=== PATIENT | male | born 2000 | race Two or more races ===

== ENCOUNTER 2022-05-09 17:51 | Emergency (ER) | payer OTHER ==
[~2022-05-09] VITALS: Ht 180.3 cm; Wt 6.4 kg
[~2022-05-09 17:51] MED LIST: INSU100I24 SQ; INSU100V SQ; LORA10TA7 PO; METO5TAB95 PO; ONDA-104 PO
[2022-05-09] MEDS ORDERED: ONDANSETRON HCL 4 MG/2 ML VIAL IVP ONE (18:30)
[2022-05-09] MEDS ORDERED: SODIUM CHLORIDE 0.9% 1,000 ML IV ONE (18:30)
[2022-05-09 18:33] LABS: BASOPHILS % (AUTO) 0.3 % (0.0-2.0); EOSINOPHILS % (AUTO) 4.6 % (1.0-6.0); HEMATOCRIT 43.6 % (41-53); HEMOGLOBIN 14.4 g/dL (13.5-17.5); LYMPHOCYTES # (AUTO) 0.8 K/uL (1.0-4.8); LYMPHOCYTES % (AUTO) 12.3 % (22.0-44.0); MEAN CORPUSCULAR HEMOGLOBIN 29.6 pg (26.0-34.0); MEAN CORPUSCULAR HGB CONC 33.1 G/dL (31.0-37.0); MEAN CORPUSCULAR VOLUME 89 fL (80-100); MONOCYTES # (AUTO) 0.4 K/uL (0.1-1.0); MONOCYTES % (AUTO) 5.4 % (2.0-9.0); NEUTROPHILS # (AUTO) 5.2 K/uL (1.8-7.7); NEUTROPHILS % (AUTO) 77.4 % (40.0-70.0); PLATELET COUNT (AUTO) 239 K/uL (150-450); RED BLOOD CELL COUNT(AUTO) 4.88 MIL/uL (4.50-5.90); RED CELL DISTRIBUTION WIDTH 13.9 % (11.5-14.5)
[2022-05-09 18:42] LABS: COVID AG,FIA SOURCE NASAL SWAB
[2022-05-09 18:42] LABS: ANION GAP 11 mmol/L (8-16); CALCIUM, TOTAL 9.2 mg/dL (8.8-10.5); CARBON DIOXIDE 27 mmol/L (22-29); CHLORIDE 102 mmol/L (98-107); CREATININE 0.47 mg/dL (0.60-1.30); GLUCOSE,RANDOM 72 mg/dL (70-110); POTASSIUM 4.4 mmol/L (3.5-5.1); SODIUM SERUM 140 mmol/L (136-145); UREA NITROGEN, BLOOD 12 mg/dL (7-18)
[2022-05-09 18:43] LABS: GLOMERULAR FILTR. RATE CALC > 60 mL/min (>60)
[2022-05-09 18:48] LABS: ALANINE AMINOTRANSFERASE 23 U/L (12-78); ALBUMIN 3.6 g/dL (3.4-5.0); ALKALINE PHOSPHATASE 120 U/L (46-116); ASPARTATE AMINOTRANSFERASE 31 U/L (15-37); BILIRUBIN,TOTAL 0.3 mg/dL (0.1-1.0); LIPASE 25 U/L (73-393); TOTAL PROTEIN, SERUM 7.8 g/dL (6.4-8.2)
[2022-05-09 19:01] LABS: INFLUENZA TYPE A NEGATIVE FOR TYPE A (NEGATIVE); INFLUENZA TYPE B NEGATIVE FOR TYPE B (NEGATIVE)
[2022-05-09 20:15] LABS: APPEARANCE,URINE CLEAR (CLEAR); BILIRUBIN,URINE NEGATIVE (NEGATIVE); GLUCOSE, URINE (UA) >=1000 mg/dL (NEGATIVE); KETONES,URINE TRACE mg/dL (NEGATIVE); LEUKOCYTE ESTERASE ,URINE NEGATIVE (NEGATIVE); NITRATE,URINE NEGATIVE (NEGATIVE); OCCULT BLOOD,URINE NEGATIVE (NEGATIVE); PROTEIN,URINE NEGATIVE (NEGATIVE); SPECIFIC GRAVITIY, URINE 1.019 (1.003-1.030); UROBILINOGEN,URINE <=1.0 mg/dL (<=1.0)
[2022-05-09 20:26] LABS: BACTERIA,URINE None Seen /HPF (None Seen); RBC,URINE None Seen /HPF (0-2); SQUAMOUS EPITHELIAL CELL,UR Few /LPF (None Seen); WBC,URINE 0-2 /HPF (0-5)
[2022-05-09 20:34] LABS: AMPHET/METH SCREEN,URINE NEGATIVE (NEGATIVE); BARBITURATE SCREEN, URINE NEGATIVE (NEGATIVE); BENZODIAZEPINES SCREEN,URINE NEGATIVE (NEGATIVE); CANNABINOID SCREEN,URINE NEGATIVE (NEGATIVE); COCAINE SCREEN,URINE NEGATIVE (NEGATIVE); METHADONE SCREEN, URINE NEGATIVE (NEGATIVE); OPIATE SCREEN,URINE NEGATIVE (NEGATIVE)
[2022-05-09 20:38] LABS: PHENCYCLIDINE SCREEN,URINE NEGATIVE (NEGATIVE)
[2022-05-09 21:23] VITALS: BP 137/88
[2022-05-09] MEDS ORDERED: ONDA-104 PO ×2 (21:25→23:13)
[2022-05-09] MEDS ORDERED: DOCU-385 PO ×2 (21:25→23:13)
== END 2022-05-09 21:45 | disposition home or self-care (01) ==
LOC: EMS 17:51
DX: R11.2 Nausea with vomiting, unspecified (principal); Z20.822 Contact with and (suspected) exposure to COVID-19; E11.9 Type 2 diabetes mellitus without complications; K59.00 Constipation, unspecified
CPT/HCPCS: 99283; 96374; 96361; 87426; 80053; 82962; 83690; 85025; 87804; 36415; 80307; 81001; J2405; J7030

== ENCOUNTER 2022-07-11 15:02 | Inpatient (IN) | payer OTHER ==
[~2022-07-11] VITALS: Ht 185.4 cm; Wt 68.9 kg
[~2022-07-11 15:02] MED LIST changes: +DOCU-385 PO
[2022-07-11 17:54] LABS: EOSINOPHILS % (AUTO) 0 % (1.0-6.0); HEMATOCRIT 46.2 % (41-53); HEMOGLOBIN 15.1 g/dL (13.5-17.5); LYMPHOCYTES # (AUTO) 0.7 K/uL (1.0-4.8); LYMPHOCYTES % (AUTO) 6.8 % (22.0-44.0); MEAN CORPUSCULAR HEMOGLOBIN 29.5 pg (26.0-34.0); MEAN CORPUSCULAR HGB CONC 32.7 G/dL (31.0-37.0); MEAN CORPUSCULAR VOLUME 90 fL (80-100); MONOCYTES # (AUTO) 0.4 K/uL (0.1-1.0); MONOCYTES % (AUTO) 3.7 % (2.0-9.0); NEUTROPHILS # (AUTO) 9.9 K/uL (1.8-7.7); PLATELET COUNT (AUTO) 248 K/uL (150-450); RED BLOOD CELL COUNT(AUTO) 5.13 MIL/uL (4.50-5.90); RED CELL DISTRIBUTION WIDTH 14.5 % (11.5-14.5)
[2022-07-11 18:04] LABS: NEUTROPHILS % (AUTO) 89.5 % (40.0-70.0)
[2022-07-11 18:12] LABS: ANION GAP 18 mmol/L (8-16); CALCIUM, TOTAL 9.1 mg/dL (8.8-10.5); CARBON DIOXIDE 25 mmol/L (22-29); CHLORIDE 98 mmol/L (98-107); GLUCOSE,RANDOM 272 mg/dL (70-110); POTASSIUM 3.8 mmol/L (3.5-5.1); SODIUM SERUM 141 mmol/L (136-145); UREA NITROGEN, BLOOD 17 mg/dL (7-18)
[2022-07-11 18:14] LABS: GLOMERULAR FILTR. RATE CALC > 60 mL/min (>60)
[2022-07-11 18:29] LABS: ALANINE AMINOTRANSFERASE 22 U/L (12-78); ALBUMIN 4.2 g/dL (3.4-5.0); ALKALINE PHOSPHATASE 116 U/L (46-116); ASPARTATE AMINOTRANSFERASE 16 U/L (15-37); BILIRUBIN,TOTAL 0.5 mg/dL (0.1-1.0); LIPASE 20 U/L (73-393); TOTAL PROTEIN, SERUM 8.3 g/dL (6.4-8.2)
[2022-07-11] MEDS ORDERED: ONDANSETRON HCL 4 MG/2 ML VIAL IVP ONE (19:15)
[2022-07-11] MEDS ORDERED: SODIUM CHLORIDE 0.9% 1,000 ML IV ONE (19:15)
[2022-07-11] MEDS ORDERED: INSULIN REGULAR, HUMAN 100 UNITS/ML IVP ONE (20:00)
[2022-07-11 20:22] LABS: BASE EXCESS,VENOUS BLOOD GAS -0.6 (-3.3-1.2); HCO3,VENOUS BLOOD GAS 24.5 (21.0-28.0); PCO2,VENOUS BLOOD GAS 33 (40-45); PH,VENOUS BLOOD GAS 7.461 (7.360-7.410); SOURCE, BLOOD GAS VENOUS; TEMPERATURE, FAHRENHEIT, BG 98.6 FAHREN (96.0-98.6); TOTAL HEMOGLOBIN,VENOUS BGAS 15.4 (12.0-18.0)
[2022-07-11 20:25] LABS: SITE, BLOOD GAS OTHER
[2022-07-11 20:37] LABS: COVID AG,FIA SOURCE NASAL SWAB
[2022-07-11 20:56] LABS: APPEARANCE,URINE CLEAR (CLEAR); BILIRUBIN,URINE NEGATIVE (NEGATIVE); GLUCOSE, URINE (UA) >=1000 mg/dL (NEGATIVE); KETONES,URINE 80-100 mg/dL (NEGATIVE); LEUKOCYTE ESTERASE ,URINE NEGATIVE (NEGATIVE); NITRATE,URINE NEGATIVE (NEGATIVE); OCCULT BLOOD,URINE NEGATIVE (NEGATIVE); PROTEIN,URINE 30-70 mg/dL (NEGATIVE); SPECIFIC GRAVITIY, URINE 1.022 (1.003-1.030); UROBILINOGEN,URINE <=1.0 mg/dL (<=1.0)
[2022-07-11] MEDS ORDERED: ACETAMINOPHEN 325 MG TABLET PO PRN (21:00)
[2022-07-11] MEDS ORDERED: INSULIN GLARGINE,HUM.REC.ANLOG 100 UNITS/ML SQ SCH (21:00)
[2022-07-11 21:22] LABS: BACTERIA,URINE Rare /HPF (None Seen); RBC,URINE None Seen /HPF (0-2); SQUAMOUS EPITHELIAL CELL,UR Few /LPF (None Seen); WBC,URINE 0-2 /HPF (0-5)
[2022-07-11 21:30] LABS: ACETONE, URINE 1:16 (NEGATIVE)
[2022-07-11] MEDS: RINGERS SOLUTION,LACTATED 1,650 ML IV ONE ×2 (22:06→22:07)
[2022-07-11 23:36] LABS: GLUCOMETER DEV NAME(LOC) ERT.5; GLUCOSE,POINT OF CARE 325 MG/DL (70-110)
[2022-07-11 23:56] LABS: ANION GAP 15 mmol/L (8-16); CALCIUM, TOTAL 8.5 mg/dL (8.8-10.5); CARBON DIOXIDE 24 mmol/L (22-29); CHLORIDE 99 mmol/L (98-107); CREATININE 0.87 mg/dL (0.60-1.30); GLUCOSE,RANDOM 285 mg/dL (70-110); POTASSIUM 3.6 mmol/L (3.5-5.1); SODIUM SERUM 138 mmol/L (136-145); UREA NITROGEN, BLOOD 19 mg/dL (7-18)
[2022-07-11 23:59] LABS: GLOMERULAR FILTR. RATE CALC > 60 mL/min (>60)
[2022-07-12] MEDS ORDERED: RINGERS SOLUTION,LACTATED 1,000 ML IV SCH (01:00)
[2022-07-12] MEDS ORDERED: RINGERS SOLUTION,LACTATED 1,000 ML IV ONE (01:15)
[2022-07-12] MEDS: ONDANSETRON HCL 4 MG/2 ML VIAL IVP PRN ×2 (01:17→11:02)
[2022-07-12 05:42] LABS: ANION GAP 16 mmol/L (8-16); CALCIUM, TOTAL 8.2 mg/dL (8.8-10.5); CARBON DIOXIDE 21 mmol/L (22-29); CHLORIDE 100 mmol/L (98-107); CREATININE 0.89 mg/dL (0.60-1.30); GLUCOSE,RANDOM 288 mg/dL (70-110); SODIUM SERUM 137 mmol/L (136-145); UREA NITROGEN, BLOOD 17 mg/dL (7-18)
[2022-07-12 05:43] LABS: BASOPHILS % (AUTO) 0.1 % (0.0-2.0); EOSINOPHILS % (AUTO) 0 % (1.0-6.0); GLOMERULAR FILTR. RATE CALC > 60 mL/min (>60); HEMATOCRIT 42.9 % (41-53); LYMPHOCYTES # (AUTO) 0.9 K/uL (1.0-4.8); LYMPHOCYTES % (AUTO) 4.8 % (22.0-44.0); MEAN CORPUSCULAR HEMOGLOBIN 29.7 pg (26.0-34.0); MEAN CORPUSCULAR HGB CONC 32.7 G/dL (31.0-37.0); MEAN CORPUSCULAR VOLUME 91 fL (80-100); MONOCYTES # (AUTO) 0.7 K/uL (0.1-1.0); NEUTROPHILS # (AUTO) 16.4 K/uL (1.8-7.7); PLATELET COUNT (AUTO) 218 K/uL (150-450); RED BLOOD CELL COUNT(AUTO) 4.72 MIL/uL (4.50-5.90); RED CELL DISTRIBUTION WIDTH 14.6 % (11.5-14.5)
[2022-07-12 05:44] LABS: NEUTROPHILS % (AUTO) 91.1 % (40.0-70.0)
[2022-07-12] MEDS ORDERED: SODIUM CHLORIDE 0.9% 1,000 ML IV SCH ×2 (06:30→16:00)
[2022-07-12] MEDS ORDERED: POTASSIUM CHL 20 MEQ/0.45% NS 1,000 ML IV PRN (06:30)
[2022-07-12] MEDS ORDERED: INSULIN REGULAR, HUMAN 100 UNITS/ML IVP PRN (06:30)
[2022-07-12] MEDS ORDERED: SODIUM CHLORIDE 0.45% 1,000 ML IV PRN (06:30)
[2022-07-12] MEDS ORDERED: POTASSIUM CHLORIDE 40 MEQ in SODIUM CHLORIDE 0.45% 1,000 ML IV PRN (06:30)
[2022-07-12] MEDS ORDERED: DEXTROSE 5%-0.45% SODIUM CHL 1,000 ML IV PRN (06:30)
[2022-07-12] MEDS ORDERED: DEXTROSE 50%-WATER 25 GM/50 ML SYRINGE IVP PRN ×2 (06:30→13:15)
[2022-07-12] MEDS ORDERED: SODIUM CHLORIDE 0.9% 100 ML ONE (07:32)
[2022-07-12] MEDS ORDERED: IOHEXOL 350 MG/ML 100 ML VIAL ONE (07:32)
[2022-07-12] MEDS: INSULIN REGULAR, HUMAN 100 UNITS in SODIUM CHLORIDE 0.9% 99 ML IV PRN ×6 (07:40→09:41)
[2022-07-12] MEDS: HEPARIN SODIUM,PORCINE 5,000 UNITS/ML VIAL SQ SCH ×4 (08:37→16:00)
[2022-07-12 09:16] LABS: GLUCOMETER DEV NAME(LOC) ERT.5; GLUCOSE,POINT OF CARE 248 MG/DL (70-110)
[2022-07-12 09:16] LABS: GLUCOMETER DEV NAME(LOC) ERT.5; GLUCOSE,POINT OF CARE 266 MG/DL (70-110)
[2022-07-12 09:56] LABS: GLUCOMETER DEV NAME(LOC) ERT.5; GLUCOSE,POINT OF CARE 215 MG/DL (70-110)
[2022-07-12 12:02] LABS: ANION GAP 9 mmol/L (8-16); CALCIUM, TOTAL 8.1 mg/dL (8.8-10.5); CARBON DIOXIDE 25 mmol/L (22-29); CHLORIDE 103 mmol/L (98-107); CREATININE 0.85 mg/dL (0.60-1.30); GLUCOSE,RANDOM 193 mg/dL (70-110); POTASSIUM 3.6 mmol/L (3.5-5.1); SODIUM SERUM 137 mmol/L (136-145); UREA NITROGEN, BLOOD 15 mg/dL (7-18)
[2022-07-12 12:03] LABS: GLOMERULAR FILTR. RATE CALC > 60 mL/min (>60)
[2022-07-12 12:11] LABS: GLUCOMETER DEV NAME(LOC) ERT.5; GLUCOSE,POINT OF CARE 185 MG/DL (70-110)
[2022-07-12 12:11] LABS: GLUCOMETER DEV NAME(LOC) ERT.5; GLUCOSE,POINT OF CARE 187 MG/DL (70-110)
[2022-07-12 12:56] LABS: GLUCOMETER DEV NAME(LOC) ERT.5; GLUCOSE,POINT OF CARE 152 MG/DL (70-110)
[2022-07-12] MEDS ORDERED: INSULIN REGULAR, HUMAN 100 UNITS/ML SQ ONE (13:15)
[2022-07-12] MEDS: SODIUM CHLORIDE 0.45% 1,000 ML IV SCH ×2 (13:17→22:07)
[2022-07-12 13:41] LABS: GLUCOMETER DEV NAME(LOC) ERT.5; GLUCOSE,POINT OF CARE 153 MG/DL (70-110)
[2022-07-12] MEDS: METOCLOPRAMIDE HCL 5 MG/ML 2 ML VIAL IVP PRN (14:23)
[2022-07-12 14:55] LABS: AMPHET/METH SCREEN,URINE NEGATIVE (NEGATIVE); BARBITURATE SCREEN, URINE NEGATIVE (NEGATIVE); BENZODIAZEPINES SCREEN,URINE NEGATIVE (NEGATIVE); CANNABINOID SCREEN,URINE NEGATIVE (NEGATIVE); COCAINE SCREEN,URINE NEGATIVE (NEGATIVE); METHADONE SCREEN, URINE NEGATIVE (NEGATIVE); OPIATE SCREEN,URINE NEGATIVE (NEGATIVE)
[2022-07-12 14:56] LABS: PHENCYCLIDINE SCREEN,URINE NEGATIVE (NEGATIVE)
[2022-07-12 15:47] LABS: BASOPHILS % (AUTO) 0.1 % (0.0-2.0); EOSINOPHILS % (AUTO) 0 % (1.0-6.0); HEMATOCRIT 43.6 % (41-53); HEMOGLOBIN 14.3 g/dL (13.5-17.5); LYMPHOCYTES # (AUTO) 1.2 K/uL (1.0-4.8); LYMPHOCYTES % (AUTO) 6.9 % (22.0-44.0); MEAN CORPUSCULAR HEMOGLOBIN 29.7 pg (26.0-34.0); MEAN CORPUSCULAR HGB CONC 32.8 G/dL (31.0-37.0); MEAN CORPUSCULAR VOLUME 91 fL (80-100); MONOCYTES % (AUTO) 6.1 % (2.0-9.0); NEUTROPHILS # (AUTO) 14.8 K/uL (1.8-7.7); PLATELET COUNT (AUTO) 247 K/uL (150-450); RED BLOOD CELL COUNT(AUTO) 4.81 MIL/uL (4.50-5.90); RED CELL DISTRIBUTION WIDTH 14.6 % (11.5-14.5)
[2022-07-12 15:48] LABS: NEUTROPHILS % (AUTO) 86.9 % (40.0-70.0)
[2022-07-12 15:56] LABS: ANION GAP 8 mmol/L (8-16); CARBON DIOXIDE 26 mmol/L (22-29); CHLORIDE 102 mmol/L (98-107); CREATININE 0.81 mg/dL (0.60-1.30); GLOMERULAR FILTR. RATE CALC > 60 mL/min (>60); GLUCOSE,RANDOM 164 mg/dL (70-110); POTASSIUM 3.7 mmol/L (3.5-5.1); SODIUM SERUM 136 mmol/L (136-145); UREA NITROGEN, BLOOD 13 mg/dL (7-18)
[2022-07-12] MEDS ORDERED: ALBUTEROL SULFATE 2.5 MG/0.5 ML NEB SOLUTION NEB PRN (16:00)
[2022-07-12] MEDS ORDERED: IPRATROPIUM BROMIDE 0.5 MG/2.5 ML NEB SOLUTION NEB PRN (16:00)
[2022-07-12] MEDS ORDERED: ONDANSETRON HCL 4 MG/2 ML VIAL IVP PRN (16:00)
[2022-07-12] MEDS ORDERED: MAGNESIUM HYDROXIDE SUSPENSION 30 ML UDCUP PO PRN (16:00)
[2022-07-12] MEDS ORDERED: BISACODYL 10 MG RECTAL RECTAL SUPPOSITORY PR PRN (16:00)
[2022-07-12 16:04] LABS: PLATELET MORPHOLOGY COMMENT LARGE PLTS PRESENT
[2022-07-12] MEDS: PIPERACILLIN/TAZO 3.375 GM/D5W 50 ML IV SCH ×2 (16:22→22:07)
[2022-07-12] MEDS: MORPHINE SULFATE 2 MG/ML SYRINGE IVP PRN ×2 (16:23→22:21)
[2022-07-12 17:32] LABS: GLUCOMETER DEV NAME(LOC) ERT.5; GLUCOSE,POINT OF CARE 153 MG/DL (70-110)
[2022-07-12] MEDS: INSULIN LISPRO 100 UNITS/ML SQ PRN (17:52)
[2022-07-12 22:00] VITALS: BP 126/73
[2022-07-12 22:21] VITALS: BP 126/73
[2022-07-12 22:51] LABS: GLUCOMETER DEV NAME(LOC) 5N.1C; GLUCOSE,POINT OF CARE 122 MG/DL (70-110)
[2022-07-13] VITALS (7 sets, daily range): BP systolic 112–162; BP diastolic 68–90
[2022-07-13] MEDS: HEPARIN SODIUM,PORCINE 5,000 UNITS/ML VIAL SQ SCH ×4 (00:47→23:24)
[2022-07-13] MEDS: PIPERACILLIN/TAZO 3.375 GM/D5W 50 ML IV SCH ×4 (05:30→23:22)
[2022-07-13] MEDS: INSULIN LISPRO 100 UNITS/ML SQ PRN ×4 (06:34→21:38)
[2022-07-13 07:52] LABS: ABG BASE EXCESS -0.3 mmol/L (-2.0-3.0); ABG CARBOXYHEMOGLOBIN 0.8 % (0.0-3.0); ABG HCO3 24.9 mmol/L (22.0-26.0); ABG METHEMOGLOBIN 0.3 % (0.0-1.5); ABG OXYGEN CONTENT 20.4 mL/dL (15.0-23.0); ABG OXYGEN SATURATION 97.7 % (95.0-98.0); ABG OXYHEMOGLOBIN 96.6 % (94.0-100.0); ABG PCO2 33 mmHg (35-45); ABG PH 7.468 (7.350-7.450); SOURCE, BLOOD GAS ARTERIAL; TEMPERATURE, FAHRENHEIT, BG 98.5 FAHREN (96.0-98.6)
[2022-07-13 07:53] LABS: SITE, BLOOD GAS RT BRACHIAL
[2022-07-13] MEDS: METOCLOPRAMIDE HCL 5 MG/ML 2 ML VIAL IVP PRN ×2 (07:56→15:49)
[2022-07-13] MEDS ORDERED: PANTOPRAZOLE SODIUM 40 MG DR TABLET PO SCH (09:00)
[2022-07-13] MEDS: ONDANSETRON HCL 4 MG/2 ML VIAL IVP PRN ×2 (10:00→21:40)
[2022-07-13] MEDS: SODIUM CHLORIDE 0.45% 1,000 ML IV SCH ×2 (10:04→23:23)
[2022-07-13] MEDS: MORPHINE SULFATE 2 MG/ML SYRINGE IVP PRN ×2 (11:11→21:41)
[2022-07-13 12:52] LABS: GLUCOMETER DEV NAME(LOC) 5S.2B; GLUCOSE,POINT OF CARE 281 MG/DL (70-110)
[2022-07-13 12:52] LABS: GLUCOMETER DEV NAME(LOC) 5S.2B; GLUCOSE,POINT OF CARE 254 MG/DL (70-110)
[2022-07-13] MEDS: VANCOMYCIN HCL 1 GM/D5% WATER 200 ML IV SCH (15:48)
[2022-07-14] VITALS (9 sets, daily range): BP systolic 96–146; BP diastolic 54–81
[2022-07-14] MEDS: VANCOMYCIN HCL 1 GM/D5% WATER 200 ML IV SCH ×4 (00:13→23:48)
[2022-07-14 00:41] LABS: GLUCOMETER DEV NAME(LOC) 5N.1C; GLUCOSE,POINT OF CARE 214 MG/DL (70-110)
[2022-07-14 00:41] LABS: GLUCOMETER DEV NAME(LOC) 5N.1C; GLUCOSE,POINT OF CARE 204 MG/DL (70-110)
[2022-07-14] MEDS ORDERED: SODIUM CHLORIDE 0.9% 100 ML ONE (03:04)
[2022-07-14] MEDS: PIPERACILLIN/TAZO 3.375 GM/D5W 50 ML IV SCH ×4 (04:41→22:56)
[2022-07-14] MEDS: ONDANSETRON HCL 4 MG/2 ML VIAL IVP PRN (05:07)
[2022-07-14] MEDS: MORPHINE SULFATE 2 MG/ML SYRINGE IVP PRN (05:07)
[2022-07-14] MEDS: INSULIN LISPRO 100 UNITS/ML SQ PRN ×4 (06:38→20:04)
[2022-07-14 06:50] LABS: ANION GAP 15 mmol/L (8-16); CALCIUM, TOTAL 8.1 mg/dL (8.8-10.5); CARBON DIOXIDE 22 mmol/L (22-29); CHLORIDE 94 mmol/L (98-107); CREATININE 0.92 mg/dL (0.60-1.30); GLUCOSE,RANDOM 280 mg/dL (70-110); POTASSIUM 3.7 mmol/L (3.5-5.1); SODIUM SERUM 131 mmol/L (136-145); UREA NITROGEN, BLOOD 13 mg/dL (7-18)
[2022-07-14 06:54] LABS: GLOMERULAR FILTR. RATE CALC > 60 mL/min (>60)
[2022-07-14] MEDS: PANTOPRAZOLE SODIUM 40 MG/VIAL IVP SCH (09:05)
[2022-07-14] MEDS: HEPARIN SODIUM,PORCINE 5,000 UNITS/ML VIAL SQ SCH ×3 (09:11→23:02)
[2022-07-14 16:16] LABS: BASOPHILS % (AUTO) 0.3 % (0.0-2.0); EOSINOPHILS % (AUTO) 0.4 % (1.0-6.0); HEMOGLOBIN 14.5 g/dL (13.5-17.5); LYMPHOCYTES # (AUTO) 1.8 K/uL (1.0-4.8); LYMPHOCYTES % (AUTO) 23.9 % (22.0-44.0); MEAN CORPUSCULAR HEMOGLOBIN 30.3 pg (26.0-34.0); MEAN CORPUSCULAR HGB CONC 33.6 G/dL (31.0-37.0); MEAN CORPUSCULAR VOLUME 90 fL (80-100); MONOCYTES # (AUTO) 0.7 K/uL (0.1-1.0); MONOCYTES % (AUTO) 9.1 % (2.0-9.0); NEUTROPHILS # (AUTO) 4.9 K/uL (1.8-7.7); NEUTROPHILS % (AUTO) 66.3 % (40.0-70.0); PLATELET COUNT (AUTO) 219 K/uL (150-450); RED BLOOD CELL COUNT(AUTO) 4.77 MIL/uL (4.50-5.90)
[2022-07-14 16:25] LABS: ANION GAP 12 mmol/L (8-16); CALCIUM, TOTAL 7.8 mg/dL (8.8-10.5); CARBON DIOXIDE 24 mmol/L (22-29); CHLORIDE 98 mmol/L (98-107); CREATININE 0.98 mg/dL (0.60-1.30); GLUCOSE,RANDOM 232 mg/dL (70-110); POTASSIUM 3.8 mmol/L (3.5-5.1); SODIUM SERUM 134 mmol/L (136-145); UREA NITROGEN, BLOOD 14 mg/dL (7-18)
[2022-07-14 16:31] LABS: ALANINE AMINOTRANSFERASE 16 U/L (12-78); ALBUMIN 2.9 g/dL (3.4-5.0); ALKALINE PHOSPHATASE 98 U/L (46-116); ASPARTATE AMINOTRANSFERASE 10 U/L (15-37); BILIRUBIN,TOTAL 0.8 mg/dL (0.1-1.0); GLOMERULAR FILTR. RATE CALC > 60 mL/min (>60); TOTAL PROTEIN, SERUM 6.1 g/dL (6.4-8.2)
[2022-07-14 16:46] LABS: GLUCOMETER DEV NAME(LOC) 5N.1C; GLUCOSE,POINT OF CARE 227 MG/DL (70-110)
[2022-07-14] MEDS: SODIUM CHLORIDE 0.45% 1,000 ML IV SCH (17:56)
[2022-07-14] MEDS: HYDROCORTISONE 1% 30 GM OINTMENT TP SCH (19:55)
[2022-07-15] MEDS: SODIUM CHLORIDE 0.45% 1,000 ML IV SCH ×3 (01:15→18:21)
[2022-07-15 04:00] VITALS: BP 101/60
[2022-07-15] MEDS: PIPERACILLIN/TAZO 3.375 GM/D5W 50 ML IV SCH ×5 (04:39→22:57)
[2022-07-15] MEDS: INSULIN LISPRO 100 UNITS/ML SQ PRN ×5 (04:49→22:34)
[2022-07-15] MEDS: MORPHINE SULFATE 2 MG/ML SYRINGE IVP PRN ×2 (04:54→08:05)
[2022-07-15 05:53] LABS: ANION GAP 12 mmol/L (8-16); CALCIUM, TOTAL 7.8 mg/dL (8.8-10.5); CARBON DIOXIDE 22 mmol/L (22-29); CHLORIDE 97 mmol/L (98-107); CREATININE 1.02 mg/dL (0.60-1.30); GLUCOSE,RANDOM 392 mg/dL (70-110); POTASSIUM 3.8 mmol/L (3.5-5.1); SODIUM SERUM 131 mmol/L (136-145); UREA NITROGEN, BLOOD 17 mg/dL (7-18); VANCOMYCIN,RANDOM 20.7 mcg/mL (25.0-50.0)
[2022-07-15 05:57] LABS: GLOMERULAR FILTR. RATE CALC > 60 mL/min (>60)
[2022-07-15 07:21] VITALS: BP 115/58
[2022-07-15] MEDS: VANCOMYCIN 1GM/WATER(PEG/NADA) 200 ML IV SCH ×2 (07:53→15:19)
[2022-07-15] MEDS: HYDROCORTISONE 1% 30 GM OINTMENT TP SCH ×2 (07:54→20:04)
[2022-07-15] MEDS: HEPARIN SODIUM,PORCINE 5,000 UNITS/ML VIAL SQ SCH ×2 (07:54→15:19)
[2022-07-15] MEDS: PANTOPRAZOLE SODIUM 40 MG/VIAL IVP SCH (07:54)
[2022-07-15 08:02] LABS: GLUCOMETER DEV NAME(LOC) 5N.1C; GLUCOSE,POINT OF CARE 272 MG/DL (70-110)
[2022-07-15 08:26] LABS: GLUCOMETER DEV NAME(LOC) 5S.2B; GLUCOSE,POINT OF CARE 249 MG/DL (70-110)
[2022-07-15 08:26] LABS: GLUCOMETER DEV NAME(LOC) 5S.2B; GLUCOSE,POINT OF CARE 268 MG/DL (70-110)
[2022-07-15 08:27] LABS: GLUCOMETER DEV NAME(LOC) 5S.2B; GLUCOSE,POINT OF CARE 358 MG/DL (70-110)
[2022-07-15 08:27] LABS: GLUCOMETER DEV NAME(LOC) 5S.2B; GLUCOSE,POINT OF CARE 229 MG/DL (70-110)
[2022-07-15 11:56] VITALS: BP 112/64
[2022-07-15 12:26] LABS: GLUCOMETER DEV NAME(LOC) 5S.2B; GLUCOSE,POINT OF CARE 230 MG/DL (70-110)
[2022-07-15 15:28] VITALS: BP 131/77
[2022-07-15] MEDS: LIDOCAINE 2% VISCOUS 15 ML SOLUTION UDCUP PO PRN ×2 (17:01→20:32)
[2022-07-15 17:41] LABS: GLUCOMETER DEV NAME(LOC) 5N.1C; GLUCOSE,POINT OF CARE 284 MG/DL (70-110)
[2022-07-15 20:00] VITALS: BP 119/90
[2022-07-15] MEDS: ZOLPIDEM TARTRATE 5 MG TABLET PO PRN (20:31)
[2022-07-15 22:41] LABS: GLUCOMETER DEV NAME(LOC) 5N.1C; GLUCOSE,POINT OF CARE 217 MG/DL (70-110)
[2022-07-16] VITALS (7 sets, daily range): BP systolic 101–149; BP diastolic 55–90
[2022-07-16] LABS: GLUCOMETER DEV NAME(LOC) 5S.2B; GLUCOSE,POINT OF CARE 269 MG/DL (70-110)
[2022-07-16] MEDS: VANCOMYCIN 1GM/WATER(PEG/NADA) 200 ML IV SCH ×3 (00:21→16:52)
[2022-07-16] MEDS: INSULIN LISPRO 100 UNITS/ML SQ PRN ×6 (00:25→21:40)
[2022-07-16] MEDS: HEPARIN SODIUM,PORCINE 5,000 UNITS/ML VIAL SQ SCH ×3 (00:27→16:52)
[2022-07-16] MEDS: HYDROCODONE/ACETAMINOPHEN 5-325 MG TABLET PO PRN ×2 (00:28→09:22)
[2022-07-16] MEDS: ACETAMINOPHEN 325 MG TABLET PO PRN ×2 (03:54→21:41)
[2022-07-16] MEDS: PIPERACILLIN/TAZO 3.375 GM/D5W 50 ML IV SCH ×2 (05:25→11:33)
[2022-07-16 05:31] LABS: GLUCOMETER DEV NAME(LOC) 5S.2B; GLUCOSE,POINT OF CARE 145 MG/DL (70-110)
[2022-07-16 07:07] LABS: ANION GAP 9 mmol/L (8-16); CALCIUM, TOTAL 8.1 mg/dL (8.8-10.5); CARBON DIOXIDE 32 mmol/L (22-29); CHLORIDE 97 mmol/L (98-107); CREATININE 0.79 mg/dL (0.60-1.30); GLUCOSE,RANDOM 148 mg/dL (70-110); POTASSIUM 3.1 mmol/L (3.5-5.1); SODIUM SERUM 138 mmol/L (136-145); UREA NITROGEN, BLOOD 9 mg/dL (7-18)
[2022-07-16 07:08] LABS: GLOMERULAR FILTR. RATE CALC > 60 mL/min (>60)
[2022-07-16] MEDS: HYDROCORTISONE 1% 30 GM OINTMENT TP SCH ×2 (09:00→21:41)
[2022-07-16] MEDS ORDERED: SODIUM CHLORIDE 0.9% 0 ML ONE (09:03)
[2022-07-16] MEDS: PANTOPRAZOLE SODIUM 40 MG/VIAL IVP SCH (09:07)
[2022-07-16] MEDS: SODIUM CHLORIDE 0.45% 1,000 ML IV SCH ×2 (09:07→23:19)
[2022-07-16] MEDS ORDERED: POTASSIUM CHLORIDE 20 MEQ ER TABLET PO ONE (17:15)
[2022-07-16 17:21] LABS: BASOPHILS % (AUTO) 0.6 % (0.0-2.0); EOSINOPHILS % (AUTO) 3.9 % (1.0-6.0); HEMATOCRIT 44.7 % (41-53); HEMOGLOBIN 14.9 g/dL (13.5-17.5); LYMPHOCYTES # (AUTO) 1.2 K/uL (1.0-4.8); LYMPHOCYTES % (AUTO) 27.7 % (22.0-44.0); MEAN CORPUSCULAR HGB CONC 33.2 G/dL (31.0-37.0); MEAN CORPUSCULAR VOLUME 90 fL (80-100); MONOCYTES # (AUTO) 0.3 K/uL (0.1-1.0); MONOCYTES % (AUTO) 7.1 % (2.0-9.0); NEUTROPHILS # (AUTO) 2.6 K/uL (1.8-7.7); NEUTROPHILS % (AUTO) 60.7 % (40.0-70.0); PLATELET COUNT (AUTO) 220 K/uL (150-450); RED BLOOD CELL COUNT(AUTO) 4.96 MIL/uL (4.50-5.90); RED CELL DISTRIBUTION WIDTH 13.8 % (11.5-14.5)
[2022-07-16] MEDS: ZOLPIDEM TARTRATE 5 MG TABLET PO PRN (21:46)
[2022-07-17] MEDS: HEPARIN SODIUM,PORCINE 5,000 UNITS/ML VIAL SQ SCH ×4 (00:15→23:52)
[2022-07-17] MEDS: VANCOMYCIN 1GM/WATER(PEG/NADA) 200 ML IV SCH ×2 (00:15→08:41)
[2022-07-17] MEDS: INSULIN LISPRO 100 UNITS/ML SQ PRN ×6 (00:21→20:39)
[2022-07-17 03:27] VITALS: BP 107/60
[2022-07-17] MEDS: HYDROCODONE/ACETAMINOPHEN 5-325 MG TABLET PO PRN (04:22)
[2022-07-17 04:26] LABS: GLUCOMETER DEV NAME(LOC) 5N.1C; GLUCOSE,POINT OF CARE 275 MG/DL (70-110)
[2022-07-17 04:26] LABS: GLUCOMETER DEV NAME(LOC) 5N.1C; GLUCOSE,POINT OF CARE 307 MG/DL (70-110)
[2022-07-17 06:57] LABS: ANION GAP 6 mmol/L (8-16); CALCIUM, TOTAL 8.7 mg/dL (8.8-10.5); CARBON DIOXIDE 32 mmol/L (22-29); CHLORIDE 101 mmol/L (98-107); CREATININE 0.99 mg/dL (0.60-1.30); GLUCOSE,RANDOM 180 mg/dL (70-110); POTASSIUM 3.5 mmol/L (3.5-5.1); SODIUM SERUM 139 mmol/L (136-145); UREA NITROGEN, BLOOD 9 mg/dL (7-18)
[2022-07-17 07:00] LABS: GLOMERULAR FILTR. RATE CALC > 60 mL/min (>60)
[2022-07-17 07:31] VITALS: BP 134/79
[2022-07-17] MEDS: PANTOPRAZOLE SODIUM 40 MG/VIAL IVP SCH (08:40)
[2022-07-17] MEDS: HYDROCORTISONE 1% 30 GM OINTMENT TP SCH ×2 (09:00→20:40)
[2022-07-17] MEDS: SODIUM CHLORIDE 0.45% 1,000 ML IV SCH ×2 (12:26→22:04)
[2022-07-17 12:40] VITALS: BP 116/71
[2022-07-17 13:06] LABS: GLUCOMETER DEV NAME(LOC) 5N.1C; GLUCOSE,POINT OF CARE 282 MG/DL (70-110)
[2022-07-17 15:34] VITALS: BP 128/80
[2022-07-17] MEDS: NAFCILLIN SODIUM 2 GM in DEXTROSE 5%-WATER 100 ML IV SCH ×3 (16:50→23:51)
[2022-07-17 19:18] VITALS: BP 122/82
[2022-07-17] MEDS: INSULIN GLARGINE,HUM.REC.ANLOG 100 UNITS/ML SQ SCH (20:39)
[2022-07-17] MEDS: ACETAMINOPHEN 325 MG TABLET PO PRN (20:40)
[2022-07-17] MEDS: ZOLPIDEM TARTRATE 5 MG TABLET PO PRN (20:40)
[2022-07-18] MEDS: INSULIN LISPRO 100 UNITS/ML SQ PRN ×5 (00:06→20:40)
[2022-07-18 00:15] VITALS: BP 126/69
[2022-07-18] MEDS: NAFCILLIN SODIUM 2 GM in DEXTROSE 5%-WATER 100 ML IV SCH ×2 (04:09→11:14)
[2022-07-18 04:30] VITALS: BP 133/61
[2022-07-18] MEDS ORDERED: LIDOCAINE 2% VISCOUS 15 ML SOLUTION UDCUP ONE (06:53)
[2022-07-18 07:05] LABS: BASOPHILS % (AUTO) 0.8 % (0.0-2.0); EOSINOPHILS % (AUTO) 5.8 % (1.0-6.0); HEMATOCRIT 38.4 % (41-53); HEMOGLOBIN 13.1 g/dL (13.5-17.5); LYMPHOCYTES # (AUTO) 1.6 K/uL (1.0-4.8); MEAN CORPUSCULAR HEMOGLOBIN 30.6 pg (26.0-34.0); MEAN CORPUSCULAR HGB CONC 34.1 G/dL (31.0-37.0); MEAN CORPUSCULAR VOLUME 90 fL (80-100); MONOCYTES # (AUTO) 0.5 K/uL (0.1-1.0); MONOCYTES % (AUTO) 10.1 % (2.0-9.0); NEUTROPHILS # (AUTO) 2.3 K/uL (1.8-7.7); NEUTROPHILS % (AUTO) 49.3 % (40.0-70.0); PLATELET COUNT (AUTO) 214 K/uL (150-450); RED BLOOD CELL COUNT(AUTO) 4.27 MIL/uL (4.50-5.90); RED CELL DISTRIBUTION WIDTH 13.9 % (11.5-14.5)
[2022-07-18 07:14] VITALS: BP 120/70
[2022-07-18] MEDS ORDERED: FentaNYL CITRATE PF 100 MCG/2 ML VIAL ONE (07:27)
[2022-07-18] MEDS ORDERED: MIDAZOLAM HCL 2 MG/2 ML VIAL ONE (07:27)
[2022-07-18 07:34] LABS: ALANINE AMINOTRANSFERASE 21 U/L (12-78); ALKALINE PHOSPHATASE 81 U/L (46-116); ANION GAP 3 mmol/L (8-16); ASPARTATE AMINOTRANSFERASE 15 U/L (15-37); BILIRUBIN,TOTAL 0.3 mg/dL (0.1-1.0); C-REACTIVE PROTEIN QUANT 0.22 mg/dL (0.00-0.30); CALCIUM, TOTAL 8.4 mg/dL (8.8-10.5); CARBON DIOXIDE 33 mmol/L (22-29); CHLORIDE 101 mmol/L (98-107); CREATININE 0.83 mg/dL (0.60-1.30); GLOMERULAR FILTR. RATE CALC > 60 mL/min (>60); GLUCOSE,RANDOM 184 mg/dL (70-110); POTASSIUM 3.3 mmol/L (3.5-5.1); SODIUM SERUM 137 mmol/L (136-145); TOTAL PROTEIN, SERUM 6.2 g/dL (6.4-8.2); UREA NITROGEN, BLOOD 9 mg/dL (7-18)
[2022-07-18] MEDS ORDERED: LIDOCAINE 2% VISCOUS 15 ML SOLUTION UDCUP PO ONE (07:45)
[2022-07-18] MEDS ORDERED: MIDAZOLAM HCL 2 MG/2 ML VIAL IVP ONE ×2 (07:45)
[2022-07-18] MEDS ORDERED: FentaNYL CITRATE PF 100 MCG/2 ML VIAL IVP ONE ×2 (07:45)
[2022-07-18] MEDS: HEPARIN SODIUM,PORCINE 5,000 UNITS/ML VIAL SQ SCH ×2 (08:00→16:00)
[2022-07-18] MEDS: HYDROCORTISONE 1% 30 GM OINTMENT TP SCH ×2 (09:00→21:00)
[2022-07-18] MEDS: SODIUM CHLORIDE 0.45% 1,000 ML IV SCH ×2 (11:14→17:27)
[2022-07-18] MEDS: PANTOPRAZOLE SODIUM 40 MG/VIAL IVP SCH (11:14)
[2022-07-18] MEDS: INSULIN GLARGINE,HUM.REC.ANLOG 100 UNITS/ML SQ SCH ×2 (11:25→20:39)
[2022-07-18 11:33] VITALS: BP 115/62
[2022-07-18 14:59] VITALS: BP 100/55
[2022-07-18] MEDS: CeFAZolin 2 GM/DEXTROSE 50 ML IV SCH (17:27)
[2022-07-18 18:12] LABS: GLUCOMETER DEV NAME(LOC) 5N.1C; GLUCOSE,POINT OF CARE 346 MG/DL (70-110)
[2022-07-18 19:57] VITALS: BP 118/69
[2022-07-18] MEDS: ZOLPIDEM TARTRATE 5 MG TABLET PO PRN (20:38)
[2022-07-18] MEDS: HYDROCODONE/ACETAMINOPHEN 5-325 MG TABLET PO PRN (20:47)
[2022-07-18] MEDS ORDERED: POTASSIUM CHL 10 MEQ/WATER 50 ML IV PRN (22:30)
[2022-07-18] MEDS ORDERED: POTASSIUM CHLORIDE 20 MEQ ER TABLET PO PRN (22:30)
[2022-07-19] MEDS: HEPARIN SODIUM,PORCINE 5,000 UNITS/ML VIAL SQ SCH ×3 (00:16→15:59)
[2022-07-19] MEDS: CeFAZolin 2 GM/DEXTROSE 50 ML IV SCH ×4 (00:16→23:31)
[2022-07-19] MEDS: INSULIN LISPRO 100 UNITS/ML SQ PRN ×5 (00:17→23:32)
[2022-07-19 00:35] VITALS: BP 116/66
[2022-07-19 03:11] LABS: GLUCOMETER DEV NAME(LOC) 5N.1C; GLUCOSE,POINT OF CARE 229 MG/DL (70-110)
[2022-07-19 03:11] LABS: GLUCOMETER DEV NAME(LOC) 5N.1C; GLUCOSE,POINT OF CARE 321 MG/DL (70-110)
[2022-07-19 05:10] VITALS: BP 115/78
[2022-07-19 06:31] LABS: GLUCOMETER DEV NAME(LOC) 5S.2B; GLUCOSE,POINT OF CARE 113 MG/DL (70-110)
[2022-07-19 07:46] VITALS: BP 120/73
[2022-07-19] MEDS: PANTOPRAZOLE SODIUM 40 MG/VIAL IVP SCH (09:18)
[2022-07-19] MEDS: INSULIN GLARGINE,HUM.REC.ANLOG 100 UNITS/ML SQ SCH ×2 (09:19→20:01)
[2022-07-19] MEDS: HYDROCORTISONE 1% 30 GM OINTMENT TP SCH ×2 (09:20→21:00)
[2022-07-19] MEDS: HYDROCODONE/ACETAMINOPHEN 5-325 MG TABLET PO PRN ×2 (09:27→23:31)
[2022-07-19] MEDS: SODIUM CHLORIDE 0.45% 1,000 ML IV SCH ×3 (10:21→23:39)
[2022-07-19 11:14] VITALS: BP 121/77
[2022-07-19 15:55] VITALS: BP 116/65
[2022-07-19 20:03] VITALS: BP 106/59
[2022-07-19 21:15] LABS: GLUCOMETER DEV NAME(LOC) 5N.1C; GLUCOSE,POINT OF CARE 234 MG/DL (70-110)
[2022-07-19 21:16] LABS: GLUCOMETER DEV NAME(LOC) 5S.2B; GLUCOSE,POINT OF CARE 267 MG/DL (70-110)
[2022-07-19 21:16] LABS: GLUCOMETER DEV NAME(LOC) 5N.1C; GLUCOSE,POINT OF CARE 237 MG/DL (70-110)
[2022-07-19 21:16] LABS: GLUCOMETER DEV NAME(LOC) 5N.1C; GLUCOSE,POINT OF CARE 208 MG/DL (70-110)
[2022-07-19] MEDS: ZOLPIDEM TARTRATE 5 MG TABLET PO PRN (23:31)
[2022-07-20] VITALS (7 sets, daily range): BP systolic 98–121; BP diastolic 51–81
[2022-07-20] MEDS: INSULIN LISPRO 100 UNITS/ML SQ PRN ×4 (03:54→20:36)
[2022-07-20 04:06] LABS: GLUCOMETER DEV NAME(LOC) 5N.1C; GLUCOSE,POINT OF CARE 247 MG/DL (70-110)
[2022-07-20] MEDS: INSULIN GLARGINE,HUM.REC.ANLOG 100 UNITS/ML SQ SCH ×2 (09:59→20:35)
[2022-07-20] MEDS: SODIUM CHLORIDE 0.45% 1,000 ML IV SCH ×2 (10:01→20:26)
[2022-07-20] MEDS: HYDROCORTISONE 1% 30 GM OINTMENT TP SCH ×2 (10:01→20:38)
[2022-07-20] MEDS: CeFAZolin 2 GM/DEXTROSE 50 ML IV SCH ×2 (10:01→16:05)
[2022-07-20] MEDS: PANTOPRAZOLE SODIUM 40 MG/VIAL IVP SCH (10:01)
[2022-07-20] MEDS: HEPARIN SODIUM,PORCINE 5,000 UNITS/ML VIAL SQ SCH ×3 (10:02→16:04)
[2022-07-20] MEDS: ACETAMINOPHEN 325 MG TABLET PO PRN (10:03)
[2022-07-20 12:22] LABS: GLUCOMETER DEV NAME(LOC) 5S.2B; GLUCOSE,POINT OF CARE 225 MG/DL (70-110)
[2022-07-20 12:22] LABS: GLUCOMETER DEV NAME(LOC) 5S.2B; GLUCOSE,POINT OF CARE 315 MG/DL (70-110)
[2022-07-20] MEDS: HYDROCODONE/ACETAMINOPHEN 5-325 MG TABLET PO PRN (19:38)
[2022-07-20] MEDS: ZOLPIDEM TARTRATE 5 MG TABLET PO PRN (20:25)
[2022-07-20 22:56] LABS: GLUCOMETER DEV NAME(LOC) 5S.2B; GLUCOSE,POINT OF CARE 247 MG/DL (70-110)
[2022-07-21 00:02] LABS: GLUCOMETER DEV NAME(LOC) 6N.1; GLUCOSE,POINT OF CARE 282 MG/DL (70-110)
[2022-07-21] MEDS: CeFAZolin 2 GM/DEXTROSE 50 ML IV SCH ×4 (00:38→23:39)
[2022-07-21] MEDS: INSULIN LISPRO 100 UNITS/ML SQ PRN ×5 (00:44→21:19)
[2022-07-21] MEDS: LIDOCAINE 2% VISCOUS 15 ML SOLUTION UDCUP PO PRN (00:55)
[2022-07-21 04:42] LABS: GLUCOMETER DEV NAME(LOC) 6N.2B; GLUCOSE,POINT OF CARE 302 MG/DL (70-110)
[2022-07-21 05:00] VITALS: BP 116/72
[2022-07-21] MEDS: SODIUM CHLORIDE 0.45% 1,000 ML IV SCH ×2 (05:41→21:17)
[2022-07-21] MEDS: HYDROCODONE/ACETAMINOPHEN 5-325 MG TABLET PO PRN ×2 (05:46→21:30)
[2022-07-21 07:02] VITALS: BP 118/74
[2022-07-21 08:46] LABS: GLUCOMETER DEV NAME(LOC) 6N.2B; GLUCOSE,POINT OF CARE 178 MG/DL (70-110)
[2022-07-21] MEDS: HEPARIN SODIUM,PORCINE 5,000 UNITS/ML VIAL SQ SCH ×4 (08:53→23:39)
[2022-07-21] MEDS: PANTOPRAZOLE SODIUM 40 MG/VIAL IVP SCH (08:56)
[2022-07-21] MEDS: INSULIN GLARGINE,HUM.REC.ANLOG 100 UNITS/ML SQ SCH ×2 (09:07→21:20)
[2022-07-21] MEDS: HYDROCORTISONE 1% 30 GM OINTMENT TP SCH ×2 (09:07→21:18)
[2022-07-21 15:27] VITALS: BP 114/66
[2022-07-21 17:51] LABS: GLUCOMETER DEV NAME(LOC) 6N.1; GLUCOSE,POINT OF CARE 319 MG/DL (70-110)
[2022-07-21 17:51] LABS: GLUCOMETER DEV NAME(LOC) 6N.1; GLUCOSE,POINT OF CARE 284 MG/DL (70-110)
[2022-07-21 19:37] VITALS: BP 118/77
[2022-07-21] MEDS: ZOLPIDEM TARTRATE 5 MG TABLET PO PRN (21:30)
[2022-07-21 21:46] LABS: GLUCOMETER DEV NAME(LOC) 6N.2B; GLUCOSE,POINT OF CARE 381 MG/DL (70-110)
[2022-07-22 04:13] VITALS: BP 96/60
[2022-07-22] MEDS: SODIUM CHLORIDE 0.45% 1,000 ML IV SCH ×2 (06:35→13:19)
[2022-07-22] MEDS: INSULIN LISPRO 100 UNITS/ML SQ PRN ×4 (06:36→20:06)
[2022-07-22 07:01] LABS: GLUCOMETER DEV NAME(LOC) 6N.1; GLUCOSE,POINT OF CARE 147 MG/DL (70-110)
[2022-07-22 07:08] VITALS: BP 107/70
[2022-07-22] MEDS: HEPARIN SODIUM,PORCINE 5,000 UNITS/ML VIAL SQ SCH ×2 (08:00→16:00)
[2022-07-22] MEDS: CeFAZolin 2 GM/DEXTROSE 50 ML IV SCH ×3 (09:23→23:08)
[2022-07-22] MEDS: PANTOPRAZOLE SODIUM 40 MG/VIAL IVP SCH (09:23)
[2022-07-22] MEDS: HYDROCORTISONE 1% 30 GM OINTMENT TP SCH ×2 (09:23→20:12)
[2022-07-22] MEDS: INSULIN GLARGINE,HUM.REC.ANLOG 100 UNITS/ML SQ SCH (09:39)
[2022-07-22 11:06] LABS: GLUCOMETER DEV NAME(LOC) 6N.2B; GLUCOSE,POINT OF CARE 188 MG/DL (70-110)
[2022-07-22 14:02] LABS: GLUCOMETER DEV NAME(LOC) 6N.2B; GLUCOSE,POINT OF CARE 318 MG/DL (70-110)
[2022-07-22 15:21] VITALS: BP 98/58
[2022-07-22 19:30] VITALS: BP 122/80
[2022-07-22] MEDS: HYDROCODONE/ACETAMINOPHEN 5-325 MG TABLET PO PRN (20:09)
[2022-07-22] MEDS ORDERED: INSULIN LISPRO 100 UNITS/ML SQ ONE (20:15)
[2022-07-22 20:28] LABS: BASOPHILS % (AUTO) 0.9 % (0.0-2.0); EOSINOPHILS % (AUTO) 3.6 % (1.0-6.0); HEMATOCRIT 38.5 % (41-53); HEMOGLOBIN 12.8 g/dL (13.5-17.5); LYMPHOCYTES % (AUTO) 22.3 % (22.0-44.0); MEAN CORPUSCULAR HEMOGLOBIN 30.3 pg (26.0-34.0); MEAN CORPUSCULAR HGB CONC 33.2 G/dL (31.0-37.0); MEAN CORPUSCULAR VOLUME 91 fL (80-100); MONOCYTES # (AUTO) 0.4 K/uL (0.1-1.0); MONOCYTES % (AUTO) 9.7 % (2.0-9.0); NEUTROPHILS # (AUTO) 2.8 K/uL (1.8-7.7); NEUTROPHILS % (AUTO) 63.5 % (40.0-70.0); PLATELET COUNT (AUTO) 249 K/uL (150-450); RED BLOOD CELL COUNT(AUTO) 4.21 MIL/uL (4.50-5.90); RED CELL DISTRIBUTION WIDTH 15.1 % (11.5-14.5)
[2022-07-22 20:37] LABS: ANION GAP 7 mmol/L (8-16); CALCIUM, TOTAL 8.7 mg/dL (8.8-10.5); CARBON DIOXIDE 29 mmol/L (22-29); CHLORIDE 101 mmol/L (98-107); CREATININE 0.88 mg/dL (0.60-1.30); GLUCOSE,RANDOM 337 mg/dL (70-110); POTASSIUM 4.2 mmol/L (3.5-5.1); SODIUM SERUM 137 mmol/L (136-145); UREA NITROGEN, BLOOD 17 mg/dL (7-18)
[2022-07-22 20:42] LABS: GLOMERULAR FILTR. RATE CALC > 60 mL/min (>60)
[2022-07-22 20:45] LABS: ALANINE AMINOTRANSFERASE 23 U/L (12-78); ALBUMIN 3.1 g/dL (3.4-5.0); ALKALINE PHOSPHATASE 86 U/L (46-116); ASPARTATE AMINOTRANSFERASE 17 U/L (15-37); BILIRUBIN,TOTAL 0.1 mg/dL (0.1-1.0); TOTAL PROTEIN, SERUM 6.8 g/dL (6.4-8.2)
[2022-07-22] MEDS ORDERED: INSULIN GLARGINE,HUM.REC.ANLOG 100 UNITS/ML SQ SCH (21:00)
[2022-07-22 21:40] VITALS: BP 130/97
[2022-07-22 21:51] LABS: GLUCOMETER DEV NAME(LOC) 6N.2B; GLUCOSE,POINT OF CARE 402 MG/DL (70-110)
[2022-07-22 21:51] LABS: GLUCOMETER DEV NAME(LOC) 6N.2B; GLUCOSE,POINT OF CARE 268 MG/DL (70-110)
[2022-07-22 21:51] LABS: GLUCOMETER DEV NAME(LOC) 6N.2B; GLUCOSE,POINT OF CARE 306 MG/DL (70-110)
== END 2022-07-22 23:35 | disposition home health service (06) | DRG 720 ==
LOC: EMS 15:38 → AHU 22:19 → 5S 07-12 18:35 → 6N 07-20 17:50
PROVIDERS: ADMIT Internal Medicine; ATTEND Internal Medicine
DX: A41.01 Sepsis due to Methicillin susceptible Staphylococcus aureus (principal); E10.10 Type 1 diabetes mellitus with ketoacidosis without coma; G93.41 Metabolic encephalopathy; E44.0 Moderate protein-calorie malnutrition; E87.3 Alkalosis; K31.84 Gastroparesis; E87.6 Hypokalemia; Z20.822 Contact with and (suspected) exposure to COVID-19; E10.43 Type 1 diabetes mellitus with diabetic autonomic (poly)neuropathy; E86.0 Dehydration; Z79.4 Long term (current) use of insulin; Z83.3 Family history of diabetes mellitus; Z68.20 Body mass index [BMI] 20.0-20.9, adult
CPT/HCPCS: 36245; 36416; 36569; 36600; 71045; 71260; 72193; 74160; 76937; 80048; 80053; 80202; 80307; 81001; 81005; 82009; 82805; 82962; 83036; 83605; 83690; 83735; 84132; 84145; 84443; 85025; 85379; 86140; 87040; 87077; 87205; 93306; 93312; 99285; C9113; G0378; J0690; J1644; J1815; J2250; J2270; J2405; J2543; J2765; J3010; J3370; J3480; J3490; J7030; J7050; J7060; J7120; Q9967; 36415-L1; 36415-TC

== ENCOUNTER 2022-08-03 18:02 | Emergency (ER) | payer OTHER ==
[~2022-08-03] VITALS: Ht 182.9 cm; Wt 63.6 kg
[~2022-08-03 18:02] MED LIST changes: -DOCU-385 PO
[2022-08-03 18:05] VITALS: BP 126/82
== END 2022-08-03 18:21 | disposition home or self-care (01) ==
LOC: EMS 18:04
DX: T80.211A Bloodstream infection due to central venous catheter, initial encounter (principal); E11.9 Type 2 diabetes mellitus without complications
CPT/HCPCS: 99281; Z7502

== ENCOUNTER 2025-04-11 02:37 | Inpatient (IN) | payer OTHER ==
[~2025-04-11] VITALS: Ht 175.3 cm; Wt 85.0 kg
[2025-04-11 03:57] LABS: PLATELET COUNT (AUTO) 243 K/uL (150-450); RED BLOOD CELL COUNT(AUTO) 4.87 MIL/uL (4.50-5.90); RED CELL DISTRIBUTION WIDTH 13.9 % (11.5-14.5); WHITE BLOOD COUNT (AUTO) 8.6 K/uL (4.5-11.0)
[2025-04-11 04:04] LABS: CALCIUM, TOTAL 8.4 mg/dL (8.8-10.5); CREATININE 0.81 mg/dL (0.60-1.30); GLOMERULAR FILTR. RATE CALC > 60 mL/min (>60); GLUCOSE,RANDOM 113 mg/dL (70-110); SODIUM SERUM 139 mmol/L (136-145); UREA NITROGEN, BLOOD 15 mg/dL (7-18)
[2025-04-11 07:55] LABS: APPEARANCE,URINE CLEAR (CLEAR); GLUCOSE, URINE (UA) NEGATIVE (NEGATIVE); LEUKOCYTE ESTERASE ,URINE NEGATIVE (NEGATIVE); NITRATE,URINE NEGATIVE (NEGATIVE); OCCULT BLOOD,URINE NEGATIVE (NEGATIVE); PH,URINE DRUG SCREEN 6.5 (5.0-8.0); SPECIFIC GRAVITIY, URINE 1.027 (1.003-1.030)
[2025-04-11 08:04] LABS: ALCOHOL, URINE DRUG SCREEN NEGATIVE (NEGATIVE); AMPHET/METH SCREEN,URINE NEGATIVE (NEGATIVE); BARBITURATE SCREEN, URINE NEGATIVE (NEGATIVE); CANNABINOID SCREEN,URINE NEGATIVE (NEGATIVE); COCAINE SCREEN,URINE NEGATIVE (NEGATIVE); METHADONE SCREEN, URINE NEGATIVE (NEGATIVE)
[2025-04-11] MEDS: SODIUM CHLORIDE 0.9% 1,000 ML IV ONE ×3 (09:00→16:27)
[2025-04-11 09:36] LABS: GLUCOMETER DEV NAME(LOC) ER.7; GLUCOSE,POINT OF CARE 103 MG/DL (70-110)
[2025-04-11] MEDS: ONDANSETRON HCL 4 MG/2 ML VIAL IVP ONE (09:50)
[2025-04-11 14:51] VITALS: BP 134/81; PULSE 105; RESP 16; TEMP 98.1; O2SAT 99
[2025-04-11] MEDS ORDERED: BISACODYL 10 MG RECTAL RECTAL SUPPOSITORY PR PRN (15:30)
[2025-04-11] MEDS ORDERED: DEXTROSE 50%-WATER 25 GM/50 ML SYRINGE IVP PRN (15:30)
[2025-04-11] MEDS ORDERED: ZOLPIDEM TARTRATE 5 MG TABLET PO PRN (15:30)
[2025-04-11] MEDS ORDERED: MAGNESIUM HYDROXIDE SUSPENSION 30 ML UDCUP PO PRN (15:30)
[2025-04-11] MEDS ORDERED: INSULIN LISPRO 100 UNITS/ML SQ PRN (15:30)
[2025-04-11] MEDS ORDERED: ACETAMINOPHEN 325 MG TABLET PO PRN (15:30)
[2025-04-11] MEDS ORDERED: HYDROCODONE/ACETAMINOPHEN 5-325 MG TABLET PO PRN (15:30)
[2025-04-11] MEDS: HEPARIN SODIUM,PORCINE 5,000 UNITS/ML VIAL SQ SCH (16:25)
[2025-04-11] MEDS: METOCLOPRAMIDE HCL 5 MG/ML 2 ML VIAL IVP SCH (16:25)
[2025-04-11] MEDS: MORPHINE SULFATE 4 MG/ML VIAL IVP PRN (16:26)
[2025-04-11] MEDS: POTASSIUM CHL 10 MEQ/WATER 50 ML IV PRN (17:59)
[2025-04-11] MEDS ORDERED: POTASSIUM CHLORIDE 20 MEQ ER TABLET PO PRN (18:00)
[2025-04-11 19:41] LABS: GLUCOMETER DEV NAME(LOC) 4E.2; GLUCOSE,POINT OF CARE 133 MG/DL (70-110)
[2025-04-11 20:14] VITALS: BP 113/67; PULSE 96; RESP 18; TEMP 99.1; O2SAT 97
[2025-04-11] MEDS: ONDANSETRON HCL 4 MG/2 ML VIAL IVP PRN (20:30)
[2025-04-11] MEDS: DOCUSATE SODIUM 100 MG CAPSULE PO SCH (21:00)
[2025-04-12 00:20] VITALS: BP 118/78; PULSE 94; RESP 18; TEMP 98.1; O2SAT 98
[2025-04-12 00:46] LABS: GLUCOMETER DEV NAME(LOC) 4E.2; GLUCOSE,POINT OF CARE 111 MG/DL (70-110)
[2025-04-12] MEDS ORDERED: PANTOPRAZOLE SODIUM 40 MG DR TABLET PO SCH (09:00)
== END 2025-04-12 04:28 | disposition left against medical advice (07) | DRG 48 ==
LOC: EMS 02:38 → EDH 12:50 → 6S 14:52
PROVIDERS: ADMIT Internal Medicine; ATTEND Internal Medicine
DX: E10.43 Type 1 diabetes mellitus with diabetic autonomic (poly)neuropathy (principal); E86.0 Dehydration; E87.6 Hypokalemia; K31.84 Gastroparesis; Z79.899 Other long term (current) drug therapy
CPT/HCPCS: 71045; 74176; 76700; 80048; 80307; 81003; 82962; 83690; 84132; 85025; 96361; 96374; 99285; J1644; J2270; J2405; J2765; J3480; J7030; 36415-L1; 36415-TC